=== PATIENT | female | born 1975 | race Two or more races ===

== ENCOUNTER 2024-11-22 17:57 | Emergency (ER) | payer OTHER ==
[~2024-11-22] VITALS: Ht 162.6 cm; Wt 90.7 kg
[2024-11-22] MEDS ORDERED: TENORMIN25 MG (18:46)
[2024-11-22] MEDS ORDERED: JANUMET 50-1,01 EACH (18:46)
[2024-11-22] MEDS ORDERED: PROGRAF1 MG (18:46)
[2024-11-22] MEDS ORDERED: COZAAR25 MG (18:46)
[2024-11-22] MEDS ORDERED: MILLIPRED5 MG (18:46)
[2024-11-22] MEDS ORDERED: ZOCOR20 MG (18:47)
[2024-11-22 21:19] LABS: HEMATOCRIT 34.3 % (36.0-45.00); HEMOGLOBIN 11.1 g/dL (12.0-15.00); MEAN CELL VOLUME 81.7 fL (80.00-100.00); MEAN CORPUSCULAR HEMOGLOBIN 26.4 pg (27.00-32.0); MEAN CORPUSCULAR HGB CONC 32.3 g/dl (32.0-36.0); PLATELET COUNT 237 K/uL (150-450); RED CELL DISTRIBUTION WIDTH 15.4 % (11.5-14.5)
[2024-11-22 21:46] LABS: ALBUMIN 3.5 gm/dL (3.4-5.0); BILIRUBIN TOTAL 0.24 mg/dL (0.3-1.2); CALCIUM 9.1 mg/dL (8.5-10.1); CREATININE SERUM 0.96 mg/dL (0.55-1.02); GFR 62.03; POTASSIUM 3.8 mEq/L (3.5-5.1); TOTAL PROTEIN 7.5 gm/dL (6.4-8.2)
[2024-11-23] MEDS ORDERED: LEVSIN/SL0.125 MG SL (01:06)
== END 2024-11-23 01:25 ==
LOC: ER 18:00
DX: R10.9 Unspecified abdominal pain (principal); Z88.6 Allergy status to analgesic agent